=== PATIENT | female | born 1975 ===

== ENCOUNTER 2017-10-01 17:54 | Emergency (ER) | payer MEDICAID, OTHER ==
[2017-10-01 18:04] VITALS: RESP 18
--- NOTE | 2017-10-01 19:00 | C.PDOC ---
History Of Present Illness 42 yo female come in for evaluation of palpitation, intermittent headache developed for past few weeks. Patient reports, "Im going though a divorce now, lots of stress". Pt accompanied by her children, who was sent from school now for psych evaluation , expressed depression sign to school year nanny. Otherwise, pt denies fever, chills, denies worse headache of life, visual changes, focal deficits, N/V, neck pain, CP, SOB, dyspnea, diaphoreiss, abd. pain, back pain, denies suicidal or homocidal ideation, denies previous hx of depression. At the time of evaluation, pt appears comfortable, appropriate, not in any apparent distress. Time Seen by Provider: 10/01/17 18:21 Chief Complaint (Nursing): Palpitations History Per: Patient Past Medical History Reviewed: Historical Data, Nursing Documentation, Vital Signs Vital Signs: Last Vital Signs Temp 97.9 F 10/01/17 18:00 Pulse 99 H 10/01/17 18:00 Resp 18 10/01/17 18:00 BP 161/84 H 10/01/17 18:07 Pulse Ox 99 10/01/17 19:00 - Medical History PMH: No Chronic Diseases Surgical History: Cholecystectomy Family History: States: No Known Family Hx - Social History Hx Tobacco Use: No Hx Alcohol Use: No Hx Substance Use: No - Immunization History Hx Tetanus Toxoid Vaccination: No Review Of Systems Except As Marked, All Systems Reviewed And Found Negative. Constitutional: Negative for: Fever, Chills Eyes: Negative for: Vision Change ENT: Negative for: Throat Pain Cardiovascular: Positive for: Palpitations. Negative for: Chest Pain, Edema, Light Headedness Respiratory: Negative for: Cough, Shortness of Breath Gastrointestinal: Negative for: Nausea, Vomiting, Abdominal Pain, Diarrhea Genitourinary: Negative for: Dysuria Musculoskeletal: Negative for: Neck Pain, Back Pain Skin: Negative for: Rash Neurological: Negative for: Weakness, Numbness, Altered Mental Status, Headache , Dizziness Physical Exam - Physical Exam Appears: Well, Non-toxic, No Acute Distress Skin: Normal Color, Warm, Dry, No Rash Head: Normacephalic Eye(s): bilateral: PERRL Nose: No Flaring, No Discharge Oral Mucosa: Moist Throat: No Drooling Neck: Supple Cardiovascular: Rhythm Regular, No Murmur, No JVD Respiratory: No Decreased Breath Sounds, No Accessory Muscle Use, No Rales, No Rhonchi, No Stridor, No Wheezing Gastrointestinal/Abdominal: Soft, No Tenderness, No Distention, No Guarding Back: No CVA Tenderness Extremity: Normal ROM, No Deformity, No Swelling Neurological/Psych: Oriented x3, Normal Speech, Normal Motor, Normal Sensation, Normal Reflexes ED Course And Treatment ECG: Interpreted By Me, Viewed By Me ECG Rhythm: Sinus Rhythm Interpretation Of ECG: SR@87/min, NAD, no acute T wave or ST-T changes O2 Sat by Pulse Oximetry: 99 Pulse Ox Interpretation: Normal Progress Note: Pt was oferred PES evaluation, refused psych eval. at this time. On re-eval, pt is awake, alert, not in any apparent distress. Afebrile, hemodynamicaly stable. Appropriate. Non-toxic. Parent was advised. ref. to F/ u with PMD, Psych in 2-3 days for re-eval. return if any new changes. Disposition Counseled Patient/Family Regarding: Diagnosis, Need For Followup - Disposition Referrals: [facility] at [facility] [Outside] Disposition: HOME/ ROUTINE Disposition Time: 21:00 Condition: STABLE Additional Instructions: FOLLOW UP WITH PMD IN 2-3 DAYS FOR RE-EVALUATION AND FURTHER TREATMENT NEED RETURN TO ED IF ANY WORSENING OR NEW CHANGES. Instructions: Anxiety (ED), Palpitations (ED) Forms: [facility] (Belarusian) Print Language: UPPER SORBIAN - Clinical Impression Clinical Impression: Palpitations
[2017-10-01 21:09] VITALS: BP 122/80; PULSE 84; TEMP 97.6
[2017-10-01 21:16] VITALS: O2SAT 99
== END 2017-10-01 21:10 | disposition home or self-care (01) ==
LOC: C.ER 17:54
DX: R00.2 Palpitations (principal)

== ENCOUNTER 2017-12-18 14:27 | Emergency (ER) | payer OTHER ==
[2017-12-18 14:40] VITALS: RESP 18
[2017-12-18] MEDS ORDERED: Aluminum Hydroxide/Magnesium Hydroxide Susp (30 mL) PO STA (15:10)
[2017-12-18] MEDS ORDERED: Sodium Chloride 0.9% 1,000 ML IV ONE (15:10)
[2017-12-18] MEDS ORDERED: Aluminum Hydroxide/Magnesium Hydroxide Susp (30 mL) ONE (15:27)
[2017-12-18] MEDS ORDERED: Sodium Chloride 0.9% 1,000 ML ONE (15:27)
[2017-12-18 15:37] LABS: BASO % 0.1 % (0.0-2.0); EOS % 0.2 % (0.0-4.0); HEMOGLOBIN 13.1 g/dL (11.0-16.0); LYMPH # 1.4 K/uL (1.0-4.3); LYMPH % 9.7 % (20.0-40.0); MEAN CELL VOLUME 85.9 fL (81.0-99.0); MEAN CORPUSCULAR HGB CONC 33.8 g/dL (33.0-37.0); MEAN PLATELET VOLUME 8.8 fL (7.2-11.7); MONO # 0.6 K/uL (0.0-0.8); MONO % 4.6 % (0.0-10.0); NEUT # 11.9 K/uL (1.8-7.0); NEUT % 85.4 % (50.0-75.0); PLATELET COUNT 223 K/uL (130-400); RBC 4.51 Mil/uL (3.80-5.20); RED CELL DISTRIBUTION WIDTH 14.2 % (11.5-14.5)
[2017-12-18 15:49] LABS: ALBUMIN 4.2 g/dL (3.5-5.0); ALT/SGPT 16 U/L (9-52); AST/SGOT 31 U/L (14-36); BLOOD UREA NITROGEN 10 mg/dL (7-17); CALCIUM 9.1 mg/dl (8.6-10.4); GFR AFRICAN-AMERICAN > 60; GFR NON-AFRICAN AMERICAN > 60; LIPASE 72 U/L (23-300)
[2017-12-18 15:49] LABS: HCG,QUALITATIVE URINE NEGATIVE (NEGATIVE)
[2017-12-18 15:50] LABS: SQUAMOUS EPITHIAL 2 /hpf (0-5); URINE BILIRUBIN NEGATIVE (NEGATIVE); URINE BLOOD 2+ (NEGATIVE); URINE CLARITY Clear (Clear); URINE COLOR Straw (YELLOW); URINE GLUCOSE (UA) NORMAL (Normal); URINE LEUKOCYTE ESTERASE NEG Leu/uL (Negative); URINE PROTEIN NEGATIVE (NEGATIVE); URINE UROBILINOGEN NORMAL mg/dL (0.2-1.0)
--- NOTE | 2017-12-18 16:09 | US ---
HISTORY: abd pain COMPARISON: None. TECHNIQUE: Sonographic evaluation of the right upper quadrant of the abdomen. FINDINGS: LIVER: Measures 13.4 cm in length. Borderline increased echogenicity of the liver parenchyma. No mass. No intrahepatic bile duct dilatation. GALLBLADDER: The gallbladder is not identified in this patient who reports prior cholecystectomy some 10 years previously. COMMON BILE DUCT: Measures 2.9 mm. No stones. No dilatation. PANCREAS: Prominent bowel gas overlies the pancreas which is completely obscured. RIGHT KIDNEY: Measures 10.1 cm in length. Normal echogenicity. No calculus, mass, or hydronephrosis. AORTA: Limited visualization due to overlying bowel gas. Upper segment patent and unremarkable. IVC: Obscured by overlying bowel gas. OTHER FINDINGS: None . IMPRESSION: Apparent surgically absent gallbladder. Clinically correlate. Borderline diffuse fatty infiltration of liver. No evidence of biliary tree dilatation. Pancreas is obscured by overlying bowel gas as well as the majority of the abdominal aorta and inferior vena cava. No suspicious right renal findings.
--- NOTE | 2017-12-18 16:10 | C.PDOC ---
History Of Present Illness 42 year old female presents with no major medical problems presents to the emergency department with complaints of pain to her left flank persisting for the past two weeks with a 10/10 severity that lasted a short while and recently subsided. Patient also complains of pressure in her middle abdominal region, described as a pulling sensation, along with a protrusion when she sits for the past three months. In addition to that, she has been experiencing flu, chills, nausea, episodic vomiting and diarrhea, swelling throat, as well as a pulsating pain in her rectal area. Patient states her last episode of vomiting was last night, and her last diarrheal episode was an hour prior to arrival. Patient states she took Tylenol for her symptoms at 8am this morning. Patient denies shortness of breath, dysuria, and hematuria. Time Seen by Provider: 12/18/17 14:40 Chief Complaint (Nursing): Flu-like Symptoms History Per: Patient History/Exam Limitations: no limitations Onset/Duration Of Symptoms: Days (14) Current Symptoms Are (Timing): Still Present Location Of Pain: Headache Associated Symptoms: Fever, Chills, Sore Throat, Vomiting (episodic), Diarrhea ( episodic) Past Medical History Reviewed: Historical Data, Nursing Documentation, Vital Signs Vital Signs: Last Vital Signs Temp 98.8 F 12/18/17 17:44 Pulse 90 12/18/17 17:44 Resp 18 12/18/17 17:44 BP 119/82 12/18/17 17:44 Pulse Ox 98 12/18/17 17:44 - Medical History PMH: No Chronic Diseases Surgical History: Cholecystectomy Family History: States: No Known Family Hx - Social History Hx Tobacco Use: No Hx Alcohol Use: No Hx Substance Use: No - Immunization History Hx Tetanus Toxoid Vaccination: No Hx Influenza Vaccination: No Hx Pneumococcal Vaccination: No Review Of Systems Except As Marked, All Systems Reviewed And Found Negative. Constitutional: Positive for: Fever, Chills Respiratory: Negative for: Shortness of Breath Gastrointestinal: Positive for: Nausea, Vomiting, Abdominal Pain, Diarrhea, Rectal Pain Genitourinary: Negative for: Dysuria, Hematuria Musculoskeletal: Positive for: Back Pain. Negative for: Leg Pain Neurological: Positive for: Headache Physical Exam - Physical Exam Appears: In Acute Distress Throat: Normal Neck: Supple, Other (cervical adenopathy, present more towards the right side of the neck) Gastrointestinal/Abdominal: Soft, Tenderness (right upper quadrant. ) ED Course And Treatment - Laboratory Results Result Diagrams: 12/18/17 15:20 12/18/17 15:20 O2 Sat by Pulse Oximetry: 100 (RA) Pulse Ox Interpretation: Normal Medical Decision Making Medical Decision Making: Plan: CMP Lipase Maalox 30ml PO Pepcid 20mg IVP NaCl IV 1000ml Zofran 4mg IVP Urinalysis + HCG US Abdomen Limited Differential Diagnoses: Unimpressed by ventral hernia, more interested in possible gallbladder disease. Disposition Counseled Patient/Family Regarding: Studies Performed, Need For Followup, Rx Given - Disposition Referrals: [facility] [Outside] [facility] [Outside] Disposition: HOME/ ROUTINE Disposition Time: 17:56 Condition: STABLE Prescriptions: Docusate Sodium [Colace] 100 mg PO BID #20 capsule Hard Fat/Phenylephrine Stanton [Hemorrhoidal 88.7%-0.25%] 1 sup NH DAILY #10 sup Ibuprofen [Motrin] 600 mg PO TID #15 tab Forms: Gen Discharge Inst Ukrainian, [facility] (Ukrainian), Work Excuse - POA Present On Arrival: None - Clinical Impression Clinical Impression: Influenza-like illness, Rectal or anal pain - Scribe Statement The provider has reviewed the documentation as recorded by the Scribe (Honorio Tamez) Provider Attestation: All medical record entries made by the Scribe were at my direction and personally dictated by me. I have reviewed the chart and agree that the record accurately reflects my personal performance of the history, physical exam, medical decision making, and the department course for this patient. I have also personally directed, reviewed, and agree with the discharge instructions and disposition.
[2017-12-18 16:28] LABS: LYMPHOCYTE 13 % (20-40); MONOCYTE 2 % (0-10); NEUTROPHIL 85 % (50-75); PLATELET ESTIMATE NORMAL (NORMAL); TOTAL CELLS COUNTED 100
[2017-12-18 17:45] VITALS: BP 119/82; PULSE 90; TEMP 98.8
[2017-12-18 17:58] VITALS: O2SAT 100
== END 2017-12-18 18:41 | disposition home or self-care (01) ==
LOC: C.ER 14:27
DX: J11.1 Influenza due to unidentified influenza virus with other respiratory manifestations (principal); K62.89 Other specified diseases of anus and rectum
CPT/HCPCS: 76705; 80053; 81001; 83690; 84703; 85025; 96361; 96374; 96375; 99284; J2405; J7040

== ENCOUNTER 2018-10-05 16:43 | Inpatient (IN) | payer OTHER ==
[2018-10-05] MEDS ORDERED: Sodium Chloride 0.9% 1,000 ML IV ONE (16:59)
--- NOTE | 2018-10-05 17:07 | C.PDOC ---
History Of Present Illness Patient reports 5 day history of flu like symptoms associated with cough, congestion lower abdominal pain and diarrhea (+) fever, (+) nausea, (-) vomiting <EvelinBaylee A - Last Filed: 10/05/18 18:26> HPI: Influenza History Per: Patient Exam Limitations: no limitations Onset/Duration Of Symptoms: Days (5) Sick Contacts (Context): None <Baylee Waters - Last Filed: 10/05/18 18:26> <Gloria Guzmán - Last Filed: 10/05/18 22:33> Time Seen by Provider: 10/05/18 16:56 Chief Complaint: Flu-like Symptoms Past Medical History Reviewed: Historical Data, Nursing Documentation Vital Signs: Last Vital Signs Temp 100.2 F H 10/05/18 16:50 Pulse 125 H 10/05/18 16:50 Resp 18 10/05/18 16:50 BP 121/84 10/05/18 16:50 Pulse Ox 95 10/05/18 16:50 - Medical History PMH: No Chronic Diseases Surgical History: Cholecystectomy Family History: States: No Known Family Hx - Social History Hx Tobacco Use: No Hx Alcohol Use: No Hx Substance Use: No - Immunization History Hx Tetanus Toxoid Vaccination: No Hx Influenza Vaccination: No Hx Pneumococcal Vaccination: No <EvelinBaylee Anahi - Last Filed: 10/05/18 18:26> Vital Signs: Last Vital Signs Temp 100.2 F H 10/05/18 16:50 Pulse 125 H 10/05/18 16:50 Resp 18 10/05/18 16:50 BP 121/84 10/05/18 16:50 Pulse Ox 95 10/05/18 18:27 <Gloria Guzmán - Last Filed: 10/05/18 22:33> Review Of Systems Constitutional: Positive for: Fever, Chills, Weakness Respiratory: Positive for: Cough. Negative for: Shortness of Breath Gastrointestinal: Positive for: Nausea, Diarrhea Genitourinary: Positive for: Dysuria <Baylee Waters Last Filed: 10/05/18 18:26> Physical Exam - Physical Exam Appears: Well, Non-toxic Skin: Normal Color Eye(s): bilateral: Normal Inspection, PERRL Nose: Normal Oral Mucosa: Moist Tongue: Normal Appearing Neck: Normal Cardiovascular: Rhythm Regular, Rhythm Irregular Respiratory: Normal Breath Sounds Gastrointestinal/Abdominal: Tenderness (Lower abdomen) Back: No CVA Tenderness Extremity: Normal ROM Neurological/Psych: Oriented x3 Gait: Steady <Baylee Waters - Last Filed: 10/05/18 18:26> - Laboratory Results Result Diagrams: 10/05/18 17:52 10/05/18 17:52 - ECG O2 Sat by Pulse Oximetry: 95 - Radiology X-Ray: Interpreted by Ks X-Ray Interpretation: No Acute Disease - Progress ED Course And Treament: Treated with IVF NSS, Toradol, Bentyl and zofran On re-evaluation abdomen soft mild LLQ tenderness <EvelinBaylee A - Last Filed: 10/05/18 18:26> - Laboratory Results Result Diagrams: 10/05/18 17:52 10/05/18 17:52 Lab Results: Total Bilirubin 0.7 mg/dL (0.2-1.3) 10/05/18 17:52 AST 27 U/L (14-36) 10/05/18 17:52 ALT 30 U/L (9-52) 10/05/18 17:52 Alkaline Phosphatase 82 U/L (38-126) 10/05/18 17:52 Total Protein 7.3 g/dL (6.3-8.3) 10/05/18 17:52 Albumin 4.1 g/dL (3.5-5.0) 10/05/18 17:52 Globulin 3.2 gm/dL (2.2-3.9) 10/05/18 17:52 Albumin/Globulin Ratio 1.3 (1.0-2.1) 10/05/18 17:52 Lipase 76 U/L (23-300) 10/05/18 17:52 Urine Color Yellow (YELLOW) 10/05/18 17:52 Urine Clarity Hazy (Clear) 10/05/18 17:52 Urine pH 6.0 (5.0-8.0) 10/05/18 17:52 Ur Specific [place] 1.009 (1.003-1.030) 10/05/18 17:52 Urine Protein Negative mg/dL (NEGATIVE) 10/05/18 17:52 Urine Glucose (UA) Normal mg/dL (Normal) 10/05/18 17:52 Urine Ketones Trace mg/dL (NEGATIVE) 10/05/18 17:52 Urine Blood 2+ (NEGATIVE) H 10/05/18 17:52 Urine Nitrate Negative (NEGATIVE) 10/05/18 17:52 Urine Bilirubin Negative (NEGATIVE) 10/05/18 17:52 Urine Urobilinogen Normal mg/dL (0.2-1.0) 10/05/18 17:52 Ur Leukocyte Esterase 1+ Patti/uL (Negative) H 10/05/18 17:52 Urine WBC (Auto) 5 /hpf (0-5) 10/05/18 17:52 Urine RBC (Auto) 4 /hpf (0-3) H 10/05/18 17:52 Ur Squamous Epith Cells 12 /hpf (0-5) H 10/05/18 17:52 Calcium Oxalate Crystal Occ /hpf (<OCC) H 10/05/18 17:52 Urine Bacteria Occ (<OCC) H 10/05/18 17:52 Urine HCG, Qual Negative (NEGATIVE) 10/05/18 17:52 Urine HCG, Qual Negative (NEGATIVE) 10/05/18 17:52 Interpretation Of Abn Labs: WBC 14.8 with 16 bands - ECG Pulse Ox Interpretation: Normal - Progress ED Course And Treament: CT Abd/Pel EXAM: CT Abdomen and Pelvis with IV contrast CLINICAL HISTORY: RIK UMBILICAL PAIN. TECHNIQUE: Axial computed tomography images of the abdomen and pelvis with intravenous contrast. CONTRAST: With intravenous contrast. COMPARISON: None provided. FINDINGS: LUNG BASES: The lung bases appear clear. No pleural effusions are seen. LIVER: Unremarkable. GALLBLADDER AND BILE DUCTS: Status post cholecystectomy. No biliary ductal dilatation is evident. PANCREAS: Unremarkable. SPLEEN: Unremarkable. ADRENAL GLANDS: Unremarkable. KIDNEYS, URETERS, AND BLADDER: The kidneys appear within normal limits. There is no hydronephrosis or hydroure ter. No urinary calculi are seen. STOMACH AND BOWEL: Unremarkable appearance of the stomach. No evidence of bowel obstruction. There is mucosal wall thickening throughout the large intestine extending into the rectum compatible with colitis/proctitis. infectious or inflammatory etiologies are thought most likely. The findings are most pronounced within the ascending and transverse segments. Additionally, there is mucosal wall thickening of the terminal ileum suspicious for regional enteritis. The possibility of Crohn's disease should be considered. APPENDIX: No evidence of acute appendicitis on CT examination. PERITONEUM: No free fluid. No free air. ABDOMINAL WALL: At the level of the umbilicus, a midline ventral herniorrhaphy mesh is present. LYMPH NODES: No lymphadenopathy is evident. REPRODUCTIVE: A 2.1 x 1.7 cm left ovarian cyst is noted. 3.5 x 2.5 cm submucosal fundal mass is seen may represent a submucosal fibroid. Nabothian cysts are seen on the internal and external cervical os. VASCULATURE: No evidence of abdominal aortic aneurysm. BONES: No aggressive appearing osseous lesion. No acute osseous pathology evident. IMPRESSION: 1. Evidence of colitis/proctitis and regional enteritis. These findings could likely have an inflammatory bowel disease or infectious etiology. 2. A midline ventral herniorrhaphy mesh is identified at the level of the umbilicus. 3. Status post cholecystectomy. 4. 3.5 x 2.5 cm submucosal fundal mass is seen may represent a submucosal fibroid. Nabothian cysts are seen on the internal and external cervical os. 2.1 x 1.7 cm left ovarian cyst is identified. Consideration could be given to correlation with TV pelvic ultrasound for further characterization. - Physician Consult Information Time Consulting Physican Contacted: 22:31 Physician Contacted: Jonathan Navarro Jr. Outcome Of Conversation: Patient to be admitted for regional enteritis with colitis, R/O Crohn's disease <Gloria Guzmán - Last Filed: 10/05/18 22:33> Disposition Counseled Patient/Family Regarding: Studies Performed, Diagnosis, Need For Followup - Disposition Disposition Time: 19:00 - POA Present On Arrival: None <Baylee Waters Last Filed: 10/05/18 18:26> - Disposition Disposition Time: 22:32 - POA Present On Arrival: None <Gloria Guzmán - Last Filed: 10/05/18 22:33> - Disposition Disposition: HOSPITALIZED Condition: STABLE - Clinical Impression Clinical Impression: Abdominal pain, Enteritis, Colitis Physician Patient Turnover Patient Signed Over To: Gloria Guzmán Handoff Comments: pending CT abdomen <Baylee Waters Last Filed: 10/05/18 18:26>
[2018-10-05] MEDS ORDERED: Sodium Chloride 0.9% 1,000 ML ONE (17:44)
--- NOTE | 2018-10-05 17:46 | RAD ---
HISTORY: Cough COMPARISON: None available. TECHNIQUE: Chest PA and lateral FINDINGS: LUNGS: No focal consolidation. Please note that chest x-ray has limited sensitivity for the detection of pulmonary masses. PLEURA: No significant pleural effusion identified. No definite pneumothorax . CARDIOVASCULAR: Heart size appears within normal limits. No atherosclerotic calcification present. OSSEOUS STRUCTURES: Mild degenerative changes. VISUALIZED UPPER ABDOMEN: Unremarkable. OTHER FINDINGS: None. IMPRESSION: No focal consolidation.
[2018-10-05 18:02] LABS: BASO % 0.2 % (0.0-2.0); HEMOGLOBIN 13.3 g/dL (11.0-16.0); LYMPH # 1.1 K/uL (1.0-4.3); LYMPH % 7.7 % (20.0-40.0); MEAN CELL VOLUME 89.2 fL (81.0-99.0); MEAN CORPUSCULAR HEMOGLOBIN 29.5 pg (27.0-31.0); MEAN CORPUSCULAR HGB CONC 33.1 g/dL (33.0-37.0); MEAN PLATELET VOLUME 8.5 fL (7.2-11.7); MONO # 0.5 K/uL (0.0-0.8); NEUT # 13.2 K/uL (1.8-7.0); NEUT % 89.1 % (50.0-75.0); NRBC % 0.1 % (0.0-2.0); PLATELET COUNT 245 K/uL (130-400); RBC 4.52 Mil/uL (3.80-5.20); RED CELL DISTRIBUTION WIDTH 12.7 % (11.5-14.5); WHITE BLOOD COUNT 14.8 K/uL (4.8-10.8)
[2018-10-05 18:04] LABS: HCG,QUALITATIVE URINE NEGATIVE (NEGATIVE)
[2018-10-05 18:07] LABS: SQUAMOUS EPITHIAL 12 /hpf (0-5); URINE BACTERIA OCC (<OCC); URINE BILIRUBIN NEGATIVE (NEGATIVE); URINE BLOOD 2+ (NEGATIVE); URINE CALCIUM OXALATE CRYSTALS OCC /hpf (<OCC); URINE CLARITY Hazy (Clear); URINE COLOR Yellow (YELLOW); URINE GLUCOSE (UA) NORMAL (Normal); URINE LEUKOCYTE ESTERASE 1+ Leu/uL (Negative); URINE PROTEIN NEGATIVE (NEGATIVE); URINE UROBILINOGEN NORMAL mg/dL (0.2-1.0)
[2018-10-05 18:08] LABS: ALB/GLOB RATIO 1.3 (1.0-2.1); ALBUMIN 4.1 g/dL (3.5-5.0); ALT/SGPT 30 U/L (9-52); AST/SGOT 27 U/L (14-36); BLOOD UREA NITROGEN 10 mg/dL (7-17); CALCIUM 8.6 mg/dl (8.6-10.4); GFR NON-AFRICAN AMERICAN > 60; LIPASE 76 U/L (23-300)
[2018-10-05] MEDS ORDERED: Iohexol 240 (50 ml) PO STA (18:16)
[2018-10-05] MEDS ORDERED: Iohexol 240 (50 ml) ONE (18:34)
[2018-10-05] MEDS ORDERED: Iohexol 350mg/ml 100 ML ONE (18:45)
[2018-10-05 18:51] LABS: BANDS 16 % (0-2); LYMPHOCYTE 8 % (20-40); MONOCYTE 3 % (0-10); NEUTROPHIL 73 % (50-75); PLATELET ESTIMATE NORMAL (NORMAL); TOTAL CELLS COUNTED 100
--- NOTE | 2018-10-05 23:45 | CP.PCM.HP ---
History of Present Illness - History of Present Illness History of Present Illness: PGY1 H&P for Dr. Navarro's service CC: abdominal pain and diarrhea This is a 43 year old female with PMH of stress incontinence, obesity, headaches who presents with a 1 day history of abdominal pain, associated with vomiting and diarrhea. Pt describes the abdominal pain as diffuse, cramping, non radiating, associated with 4 episodes of yellow colored liquid stool, 2 episodes of yellow colored vomiting. She also endorses a tactile fever, diffuse muscle cramps, and diffuse headache. Pt reports that she took Ibuprofen x1 pill (unknown mg) yesterday, which helped with the headache, and this is what she usually does when she has a headache. She denies chills, chest pain, palpitations, shortness of breath, cough, dizziness, lightheadedness, visual changes, numbness or tingling, recent travel, recent illness, recent antibiotics use, history of similar symptoms in the past, hematochezia, melena, dysuria, increased urinary frequency, hematuria. PMD: not sure of name and hasn't seen a physician in over 8 months PMH: stress incontinence, obesity, headaches PSH: lap cholecystectomy greater than 10 years ago, ventral hernia repair with mesh greater than 5 years ago, abdominoplasty 2 years ago Meds: Ibuprofen as needed Allx: NKDA FHx: denies. Denies family history of inflammatory bowel disease, or similar symptoms. Denies family history of cancers. SHx: denies smoking history, denies drug use. Occasional EtOH use Present on Admission - Present on Admission Any Indicators Present on Admission: No Past Patient History - Infectious Disease Hx of Infectious Diseases: None - Past Social History Smoking Status: Never Smoked - PSYCHIATRIC Hx Substance Use: No - SURGICAL HISTORY Hx Cholecystectomy: Yes - ANESTHESIA Hx Anesthesia: Yes Hx Anesthesia Reactions: No Hx Malignant Hyperthermia: No Meds Allergies/Adverse Reactions: Allergies Allergy/AdvReac Type Severity Reaction Status Date / Time No Known Allergies Allergy Verified 12/18/17 14:40 Physical Exam - Constitutional Appears: Non-toxic, No Acute Distress - Head Exam Head Exam: ATRAUMATIC, NORMAL INSPECTION - Eye Exam Eye Exam: EOMI, Normal appearance - ENT Exam ENT Exam: Mucous Membranes Moist - Respiratory Exam Respiratory Exam: Clear to Auscultation Bilateral, NORMAL BREATHING PATTERN. absent: Decreased Breath Sounds, Rales, Rhonchi, Wheezes - Cardiovascular Exam Cardiovascular Exam: REGULAR RHYTHM, +S1, +S2. absent: Tachycardia - GI/Abdominal Exam GI & Abdominal Exam: Soft, Tenderness (diffuse tendernes, suprapubic tenderness). absent: Distended, Firm, Normal Bowel Sounds (hyperactive bowel sounds), Rebound, Rigid Additional comments: (+) horizontal, well healed abdominoplasty scar (+) laproscopic scars, well healed. - Extremities Exam Extremities exam: Positive for: normal capillary refill, normal inspection, pedal pulses present. Negative for: calf tenderness - Back Exam Back exam: NORMAL INSPECTION, paraspinal tenderness (bilateral entire spinal hypertonicity with mild tenderness). absent: CVA tenderness (L), CVA tenderness (R) - Neurological Exam Neurological exam: Alert, Oriented x3 - Psychiatric Exam Psychiatric exam: Normal Affect, Normal Mood - Skin Skin Exam: Dry, Normal Color, Warm Additional comments: normal skin turgor Results - Vital Signs Recent Vital Signs: Last Vital Signs Temp 100.2 F H 10/05/18 16:50 Pulse 125 H 10/05/18 16:50 Resp 18 10/05/18 16:50 BP 121/84 10/05/18 16:50 Pulse Ox 95 10/05/18 18:27 - Labs Result Diagrams: 10/05/18 17:52 10/05/18 17:52 Labs: Laboratory Results - last 24 hr 10/05/18 10/05/18 10/05/18 17:52 17:52 17:52 WBC 14.8 H RBC 4.52 Hgb 13.3 Hct 40.3 MCV 89.2 D MCH 29.5 MCHC 33.1 RDW 12.7 Plt Count 245 MPV 8.5 Neut % (Auto) 89.1 H Lymph % (Auto) 7.7 L Real % (Auto) 3.0 Eos % (Auto) 0.0 Baso % (Auto) 0.2 Neut # (Auto) 13.2 H Lymph # (Auto) 1.1 Real # (Auto) 0.5 Eos # (Auto) 0.0 Baso # (Auto) 0.0 Neutrophils % (Manual) 73 Band Neutrophils % 16 H* Lymphocytes % (Manual) 8 L Monocytes % (Manual) 3 Platelet Estimate Normal Sodium Potassium Chloride Carbon Dioxide Anion Gap BUN Creatinine Est GFR ( Amer) Est GFR (Non-Af Amer) Random Glucose Calcium Total Bilirubin AST ALT Alkaline Phosphatase Total Protein Albumin Globulin Albumin/Globulin Ratio Lipase Urine Color Yellow Urine Clarity Hazy Urine pH 6.0 Ur Specific [place] 1.009 Urine Protein Negative Urine Glucose (UA) Normal Urine Ketones Trace Urine Blood 2+ H Urine Nitrate Negative Urine Bilirubin Negative Urine Urobilinogen Normal Ur Leukocyte Esterase 1+ H Urine WBC (Auto) 5 Urine RBC (Auto) 4 H Ur Squamous Epith Cells 12 H Calcium Oxalate Crystal Occ H Urine Bacteria Occ H Urine HCG, Qual Negative Influenza Typ A,B (EIA) Negative for flu a/b 10/05/18 17:52 WBC RBC Hgb Hct MCV MCH MCHC RDW Plt Count MPV Neut % (Auto) Lymph % (Auto) Real % (Auto) Eos % (Auto) Baso % (Auto) Neut # (Auto) Lymph # (Auto) Real # (Auto) Eos # (Auto) Baso # (Auto) Neutrophils % (Manual) Band Neutrophils % Lymphocytes % (Manual) Monocytes % (Manual) Platelet Estimate Sodium 134 Potassium 3.6 Chloride 103 Carbon Dioxide 22 Anion Gap 12 BUN 10 Creatinine 0.9 Est GFR ( Amer) > 60 Est GFR (Non-Af Amer) > 60 Random Glucose 113 H D Calcium 8.6 Total Bilirubin 0.7 AST 27 ALT 30 Alkaline Phosphatase 82 Total Protein 7.3 Albumin 4.1 Globulin 3.2 Albumin/Globulin Ratio 1.3 Lipase 76 Urine Color Urine Clarity Urine pH Ur Specific [place] Urine Protein Urine Glucose (UA) Urine Ketones Urine Blood Urine Nitrate Urine Bilirubin Urine Urobilinogen Ur Leukocyte Esterase Urine WBC (Auto) Urine RBC (Auto) Ur Squamous Epith Cells Calcium Oxalate Crystal Urine Bacteria Urine HCG, Qual Influenza Typ A,B (EIA) Assessment & Plan - Assessment and Plan (Free Text) Assessment: This is a 43 year old female with PMH of stress incontinence, obesity, headaches who presents with a 1 day history of abdominal pain, associated with vomiting and diarrhea. Abdominal CT shows colitis/proctatis and regional enteritis. Plan: Colitis, first time Code sepsis was called in the ED Low grade fever Abdominal/pelvic CT with PO/IV contrast shows evidence of colitis/proctitis and regional enteritis. Midline ventral hernia herniorrhaphy mesh at level of umbilicus. S/p cholecystectomy. 3.5 x 2.5 cm submucosal fundal mass, may represent submucosal fibroid. Nabothian cysts on the internal and external cervical os. 2.1 x 1.7 cm left ovarian cyst. CXR shows no free air, no infiltrate. WBC is 14.8 with bandemia of 16 Lipase is WNL NPO NS IVF at 100 mL/hr Ciprofloxacin 400 mg IVPB q12h, Flagyl 500 mg IPVPB q8h Gastroenterology, Dr. Rodríguez, consulted. Recommendations appreciated F/u blood cultures x2 F/u Lactate Abnormal urinalysis UCG is negative Pt is not complaining of any urinary symptoms UA shows 2+ blood, 1 leukocyte esterase, 12 squamous cells F/u clean catch urinalysis, clean catch urine culture GI ppx: Protonix 40 mg IVP VTE ppx: SCDs, pt is ambulatory NPO Case was discussed with attending physician, Dr. Melanie Carreon PGY1
[2018-10-06] MEDS: Sodium Chloride 0.9% 1,000 ML IV SCH ×3 (00:15→20:26)
[2018-10-06] MEDS ORDERED: metroNIDAZOLE IV 500 mg/100 ml 500 MG/100 ML BAG ONE ×2 (00:18→07:35)
[2018-10-06] MEDS: metroNIDAZOLE IV 500 mg/100 ml 500 MG/100 ML BAG IVPB SCH ×4 (00:41→22:52)
[2018-10-06 00:47] LABS: VENOUS BLOOD GAS BASE EXCESS -5.4 mmol/L (0.0-2.0); VENOUS BLOOD GAS PCO2 38 mmHg (40-60); VENOUS BLOOD GAS PO2 33 mm/Hg (30-55); VENOUS BLOOD PH 7.33 (7.32-7.43)
[2018-10-06] MEDS: Ciprofloxacin 400mg/200ml D5W 400 MG/200 ML BAG IVPB SCH ×2 (02:20→11:24)
[2018-10-06] MEDS ORDERED: Ciprofloxacin 400mg/200ml D5W 400 MG/200 ML BAG IVPB ONE (02:26)
[2018-10-06 04:42] LABS: BASO % 0.1 % (0.0-2.0); HEMOGLOBIN 13.4 g/dL (11.0-16.0); LYMPH # 0.7 K/uL (1.0-4.3); LYMPH % 5.4 % (20.0-40.0); MEAN CELL VOLUME 89.4 fL (81.0-99.0); MEAN CORPUSCULAR HEMOGLOBIN 30.2 pg (27.0-31.0); MEAN CORPUSCULAR HGB CONC 33.8 g/dL (33.0-37.0); MEAN PLATELET VOLUME 8.2 fL (7.2-11.7); MONO # 0.2 K/uL (0.0-0.8); MONO % 1.3 % (0.0-10.0); NEUT # 12.7 K/uL (1.8-7.0); NEUT % 93.2 % (50.0-75.0); PLATELET COUNT 230 K/uL (130-400); RBC 4.42 Mil/uL (3.80-5.20); RED CELL DISTRIBUTION WIDTH 12.9 % (11.5-14.5); WHITE BLOOD COUNT 13.7 K/uL (4.8-10.8)
[2018-10-06 05:01] LABS: SQUAMOUS EPITHIAL 1 /hpf (0-5); URINE BACTERIA RARE (<OCC); URINE BILIRUBIN NEGATIVE (NEGATIVE); URINE CLARITY Clear (Clear); URINE COLOR Yellow (YELLOW); URINE GLUCOSE (UA) NORMAL (Normal); URINE LEUKOCYTE ESTERASE NEG Leu/uL (Negative); URINE PROTEIN NEGATIVE (NEGATIVE); URINE UROBILINOGEN NORMAL mg/dL (0.2-1.0)
[2018-10-06 05:05] LABS: URINE BLOOD NEGATIVE (NEGATIVE)
[2018-10-06 05:09] LABS: ALB/GLOB RATIO 1.3 (1.0-2.1); ALBUMIN 4.2 g/dL (3.5-5.0); ALT/SGPT 42 U/L (9-52); AST/SGOT 28 U/L (14-36); BLOOD UREA NITROGEN 11 mg/dL (7-17); CALCIUM 8.7 mg/dl (8.6-10.4); GFR NON-AFRICAN AMERICAN > 60
[2018-10-06 05:34] LABS: BANDS 8 % (0-2); LYMPHOCYTE 2 % (20-40); MONOCYTE 5 % (0-10); NEUTROPHIL 85 % (50-75); TOTAL CELLS COUNTED 100
[2018-10-06 05:35] LABS: PLATELET ESTIMATE NORMAL (NORMAL)
--- NOTE | 2018-10-06 07:40 | CP.PCM.PN ---
Subjective - Date & Time of Evaluation Date of Evaluation: 10/06/18 Time of Evaluation: 08:30 - Subjective Subjective: Patient examined at bedside. No acute overnight events. Pt reports continued watery loose stools, approximately 4 since admission; much decreased from prior. Pt reports improved abdominal pain. Pt has had decreased appetite since Wednesday and has not eaten much and is eager to resume diet. Denies chest pain, SOB, nausea. Objective - Vital Signs/Intake and Output Vital Signs (last 24 hours): Temp Pulse Resp BP Pulse Ox 97.9 F 81 18 99/64 L 100 10/06/18 07:20 10/06/18 07:20 10/06/18 07:20 10/06/18 07:20 10/06/18 07:20 Intake and Output: 10/06/18 10/06/18 06:59 18:59 Output Total 850 Balance -850 - Medications Medications: Current Medications Acetaminophen (Tylenol 325mg Tab) 650 mg PO PRN PRN PRN Reason: Fever >100.4 F Ciprofloxacin (Cipro 400mg/200ml Dsw) 400 mg in 200 mls @ 133 mls/hr IVPB Q12H [facility]ANN; Protocol Last Admin: 10/06/18 02:20 Dose: 133 mls/hr Metronidazole (Flagyl) 500 mg in 100 mls @ 100 mls/hr IVPB Q8H [facility]ANN; Protocol Last Admin: 10/06/18 07:35 Dose: 100 mls/hr Sodium Chloride (Sodium Chloride 0.9%) 1,000 mls @ 100 mls/hr IV .Q10H [facility]ANN Last Admin: 10/06/18 00:15 Dose: 100 mls/hr Methylprednisolone (Solu-Medrol) 40 mg IV Q12 RUTHANN Stop: 10/07/18 22:01 Pantoprazole Sodium (Protonix Inj) 40 mg IVP DAILY R[facility]ANN - Labs Labs: 10/06/18 04:38 10/06/18 04:38 - Constitutional Appears: Non-toxic, No Acute Distress - Head Exam Head Exam: ATRAUMATIC, NORMAL INSPECTION, NORMOCEPHALIC - Eye Exam Eye Exam: EOMI, Normal appearance Pupil Exam: NORMAL ACCOMODATION - ENT Exam ENT Exam: Mucous Membranes Moist, Normal Exam - Neck Exam Neck Exam: Normal Inspection - Respiratory Exam Respiratory Exam: Clear to Ausculation Bilateral, NORMAL BREATHING PATTERN - Cardiovascular Exam Cardiovascular Exam: REGULAR RHYTHM, +S1, +S2. absent: Tachycardia - GI/Abdominal Exam GI & Abdominal Exam: Soft, Tenderness (suprapubic), Normal Bowel Sounds. absent: Distended Additional comments: Abdominal incisions from abdominoplasty, well healed - Extremities Exam Extremities Exam: Normal Inspection. absent: Calf Tenderness, Pedal Edema - Back Exam Back Exam: NORMAL INSPECTION - Neurological Exam Neurological Exam: Alert, Awake, Oriented x3 - Psychiatric Exam Psychiatric exam: Normal Affect, Normal Mood - Skin Skin Exam: Dry, Intact, Normal Color, Warm Assessment and Plan - Assessment and Plan (Free Text) Assessment: 43 year old female admitted for treatment of pancolitis Plan: Pancolitis -CT abd/pelvis: diffuse thickening of colon suggestive of pancolitis -IV Abx, Cipro, Flagyl -Solumedrol 40mg q12 -IVF, NS @100 -f/u cultures -Tylenol prn, pain, fever -for colonoscopy tomorrow -bowel prep/NPO after MN -GI consult, Dr. Rodríguez Discussed w/ Dr. Navarro -Samaria Torres, PGY-1
--- NOTE | 2018-10-06 09:44 | CP.PCM.CON ---
History of Present Illness - History of Present Illness History of Present Illness: GI Consult Note for Dr. Rodríguez Past Patient History - Infectious Disease Hx of Infectious Diseases: None - Past Social History Smoking Status: Never Smoked - PSYCHIATRIC Hx Substance Use: No - SURGICAL HISTORY Hx Cholecystectomy: Yes - ANESTHESIA Hx Anesthesia: Yes Hx Anesthesia Reactions: No Hx Malignant Hyperthermia: No Meds Allergies/Adverse Reactions: Allergies Allergy/AdvReac Type Severity Reaction Status Date / Time No Known Allergies Allergy Verified 12/18/17 14:40 - Medications Medications: Current Medications Acetaminophen (Tylenol 325mg Tab) 650 mg PO PRN PRN PRN Reason: Fever >100.4 F Ciprofloxacin (Cipro 400mg/200ml Dsw) 400 mg in 200 mls @ 133 mls/hr IVPB Q12H R[facility]ANN; Protocol Last Admin: 10/06/18 02:20 Dose: 133 mls/hr Metronidazole (Flagyl) 500 mg in 100 mls @ 100 mls/hr IVPB Q8H R[facility]ANN; Protocol Last Admin: 10/06/18 07:35 Dose: 100 mls/hr Sodium Chloride (Sodium Chloride 0.9%) 1,000 mls @ 100 mls/hr IV .Q10H R[facility]ANN Last Admin: 10/06/18 00:15 Dose: 100 mls/hr Methylprednisolone (Solu-Medrol) 40 mg IV Q12 RUTHANN Stop: 10/07/18 22:01 Pantoprazole Sodium (Protonix Inj) 40 mg IVP DAILY [facility] Results - Vital Signs Recent Vital Signs: Last Vital Signs Temp 97.3 F L 10/06/18 08:44 Pulse 77 10/06/18 08:44 Resp 20 10/06/18 08:44 BP 103/72 10/06/18 08:44 Pulse Ox 98 10/06/18 08:44 - Labs Result Diagrams: 10/06/18 04:38 10/06/18 04:38 Labs: Laboratory Results - last 24 hr 10/05/18 10/05/18 10/05/18 17:52 17:52 17:52 WBC 14.8 H RBC 4.52 Hgb 13.3 Hct 40.3 MCV 89.2 D MCH 29.5 MCHC 33.1 RDW 12.7 Plt Count 245 MPV 8.5 Neut % (Auto) 89.1 H Lymph % (Auto) 7.7 L [place] % (Auto) 3.0 Eos % (Auto) 0.0 Baso % (Auto) 0.2 Neut # (Auto) 13.2 H Lymph # (Auto) 1.1 [place] # (Auto) 0.5 Eos # (Auto) 0.0 Baso # (Auto) 0.0 Neutrophils % (Manual) 73 Band Neutrophils % 16 H* Lymphocytes % (Manual) 8 L Monocytes % (Manual) 3 Platelet Estimate Normal pO2 VBG pH VBG pCO2 VBG HCO3 VBG Total CO2 VBG O2 Sat (Calc) VBG Base Excess VBG Potassium Glucose Lactate Sodium Potassium Chloride Carbon Dioxide Anion Gap BUN Creatinine Est GFR ( Amer) Est GFR (Non-Af Amer) Random Glucose Calcium Phosphorus Magnesium Total Bilirubin AST ALT Alkaline Phosphatase Total Protein Albumin Globulin Albumin/Globulin Ratio Lipase Venous Blood Potassium Urine Color Yellow Urine Clarity Hazy Urine pH 6.0 Ur Specific Epes 1.009 Urine Protein Negative Urine Glucose (UA) Normal Urine Ketones Trace Urine Blood 2+ H Urine Nitrate Negative Urine Bilirubin Negative Urine Urobilinogen Normal Ur Leukocyte Esterase 1+ H Urine WBC (Auto) 5 Urine RBC (Auto) 4 H Ur Squamous Epith Cells 12 H Calcium Oxalate Crystal Occ H Urine Bacteria Occ H Urine HCG, Qual Negative Influenza Typ A,B (EIA) Negative for flu a/b 10/05/18 10/06/18 10/06/18 17:52 00:40 04:38 WBC 13.7 H RBC 4.42 Hgb 13.4 Hct 39.5 MCV 89.4 MCH 30.2 MCHC 33.8 RDW 12.9 Plt Count 230 MPV 8.2 Neut % (Auto) 93.2 H Lymph % (Auto) 5.4 L [place] % (Auto) 1.3 Eos % (Auto) 0.0 Baso % (Auto) 0.1 Neut # (Auto) 12.7 H Lymph # (Auto) 0.7 L [place] # (Auto) 0.2 Eos # (Auto) 0.0 Baso # (Auto) 0.0 Neutrophils % (Manual) 85 H Band Neutrophils % 8 H Lymphocytes % (Manual) 2 L Monocytes % (Manual) 5 Platelet Estimate Normal pO2 33 VBG pH 7.33 VBG pCO2 38 L VBG HCO3 19.7 VBG Total CO2 21.2 L VBG O2 Sat (Calc) 64.2 VBG Base Excess -5.4 L VBG Potassium 2.6 L Glucose 71 Lactate 0.7 Sodium 134 143.0 Potassium 3.6 Chloride 103 113.0 H Carbon Dioxide 22 Anion Gap 12 BUN 10 Creatinine 0.9 Est GFR ( Amer) > 60 Est GFR (Non-Af Amer) > 60 Random Glucose 113 H D Calcium 8.6 Phosphorus Magnesium Total Bilirubin 0.7 AST 27 ALT 30 Alkaline Phosphatase 82 Total Protein 7.3 Albumin 4.1 Globulin 3.2 Albumin/Globulin Ratio 1.3 Lipase 76 Venous Blood Potassium 2.6 L Urine Color Urine Clarity Urine pH Ur Specific Epes Urine Protein Urine Glucose (UA) Urine Ketones Urine Blood Urine Nitrate Urine Bilirubin Urine Urobilinogen Ur Leukocyte Esterase Urine WBC (Auto) Urine RBC (Auto) Ur Squamous Epith Cells Calcium Oxalate Crystal Urine Bacteria Urine HCG, Qual Influenza Typ A,B (EIA) 10/06/18 10/06/18 04:38 04:38 WBC RBC Hgb Hct MCV MCH MCHC RDW Plt Count MPV Neut % (Auto) Lymph % (Auto) [place] % (Auto) Eos % (Auto) Baso % (Auto) Neut # (Auto) Lymph # (Auto) [place] # (Auto) Eos # (Auto) Baso # (Auto) Neutrophils % (Manual) Band Neutrophils % Lymphocytes % (Manual) Monocytes % (Manual) Platelet Estimate pO2 VBG pH VBG pCO2 VBG HCO3 VBG Total CO2 VBG O2 Sat (Calc) VBG Base Excess VBG Potassium Glucose Lactate Sodium 136 Potassium 4.0 Chloride 107 Carbon Dioxide 22 Anion Gap 11 BUN 11 Creatinine 0.9 Est GFR ( Amer) > 60 Est GFR (Non-Af Amer) > 60 Random Glucose 122 H Calcium 8.7 Phosphorus 2.1 L Magnesium 2.2 Total Bilirubin 0.6 AST 28 ALT 42 Alkaline Phosphatase 98 Total Protein 7.6 Albumin 4.2 Globulin 3.3 Albumin/Globulin Ratio 1.3 Lipase Venous Blood Potassium Urine Color Yellow Urine Clarity Clear Urine pH 6.0 Ur Specific Epes 1.021 Urine Protein Negative Urine Glucose (UA) Normal Urine Ketones 1+ H Urine Blood Negative Urine Nitrate Negative Urine Bilirubin Negative Urine Urobilinogen Normal Ur Leukocyte Esterase Neg Urine WBC (Auto) 1 Urine RBC (Auto) 1 Ur Squamous Epith Cells 1 Calcium Oxalate Crystal Urine Bacteria Rare Urine HCG, Qual Influenza Typ A,B (EIA)
--- NOTE | 2018-10-06 09:53 | CT ---
CT abdomen and pelvis HISTORY: Abdominal pain. COMPARISON: None available. TECHNIQUE: Multiple contiguous axial images were performed through the abdomen and pelvis with the use of intravenous contrast. Subsequently, sagittal and coronal reformatted images were obtained. This CT exam was performed using one or more of the following dose reduction techniques: Automated exposure control, adjustment of the mA and/or kV according to patient size, and/or use of iterative reconstruction technique. Findings: Atelectasis at the lung bases. 4-5 millimeter pulmonary nodule at the lateral aspect of the left lower lobe on series 3, image 30. No pleural or pericardial effusion. Fatty infiltration of the liver. Prior cholecystectomy. Postsurgical prominence of the common bile duct. Spleen is preserved. Adrenal glands are preserved. Pancreas is preserved. Upper abdominal bowel is preserved. Right kidney: No calculi or hydronephrosis. Left Kidney: No calculi or hydronephrosis. Urinary bladder is preserved. Heterogeneous uterus. Prominent nabothian cysts noted at the level of the cervix. Thickened heterogeneous endometrium. Question submucosal lesion and or possible fibroid lesion within the uterus. 2.5 centimeter left adnexal cyst. Correlation with pelvic ultrasound may be helpful if clinically indicated. Diffuse thickening of the colon suggestive for a pancolitis. This is most pronounced in the ascending and transverse colon. Few shotty mesenteric lymph nodes seen within right sweetie abdomen. Appendix is contrast filled and within limits. Few shotty para-aortic and inguinal lymph nodes. Postsurgical changes at the level of the anterior abdominal wall. Degenerative changes in the spine. Sclerosis bilateral SI joints. Impression: 1. Diffuse thickening of the colon suggestive for a pancolitis. This may be related to acute infectious and or inflammatory changes. Clinical correlation. 2. Heterogeneous uterus. Prominent nabothian cysts noted at the level of the cervix. Thickened heterogeneous endometrium. Question submucosal lesion and or possible fibroid lesion within the uterus. 2.5 centimeter left adnexal cyst. Correlation with pelvic ultrasound may be helpful if clinically indicated. Additional findings as above. A preliminary report was generated at 10:08 p.m. on 10/05/[address] Jeffrey Harris from [employer].
--- NOTE | 2018-10-06 11:27 | CP.PCM.PCO ---
Physician Communication Note - Physician Communication Note Physician Communication Note: see above
[2018-10-06] MEDS ORDERED: Peg-Electrolyte Oral Soln 4L (Golytely) PO ONE (14:03)
[2018-10-07] MEDS: Ciprofloxacin 400mg/200ml D5W 400 MG/200 ML BAG IVPB SCH ×2 (00:45→12:28)
[2018-10-07] MEDS: metroNIDAZOLE IV 500 mg/100 ml 500 MG/100 ML BAG IVPB SCH ×3 (06:52→23:21)
--- NOTE | 2018-10-07 06:55 | CP.PCM.PN ---
Subjective - Date & Time of Evaluation Date of Evaluation: 10/07/18 Time of Evaluation: 06:50 - Subjective Subjective: Patient examined at bedside. Discussion had with pt regarding plan for colonoscopy today. Pt reports she drank the prep as instructed yesterday, has had multiple bowel movements, and experienced some cramping/pain overnight. Pt reports abdominal discomfort is much improved this morning; denies chest pain, SOB, nausea. Objective - Vital Signs/Intake and Output Vital Signs (last 24 hours): Temp Pulse Resp BP Pulse Ox 98.0 F 87 20 100/61 97 10/07/18 00:00 10/07/18 00:00 10/07/18 00:00 10/07/18 00:00 10/07/18 00:00 - Medications Medications: Current Medications Acetaminophen (Tylenol 325mg Tab) 650 mg PO Q4H PRN PRN Reason: Other Last Admin: 10/06/18 18:05 Dose: 650 mg Ciprofloxacin (Cipro 400mg/200ml Dsw) 400 mg in 200 mls @ 133 mls/hr IVPB Q12H RUTHANN; Protocol Last Admin: 10/07/18 00:45 Dose: 133 mls/hr Metronidazole (Flagyl) 500 mg in 100 mls @ 100 mls/hr IVPB Q8H RUTHANN; Protocol Last Admin: 10/07/18 06:52 Dose: 100 mls/hr Sodium Chloride (Sodium Chloride 0.9%) 1,000 mls @ 100 mls/hr IV .Q10H RUTHANN Last Admin: 10/06/18 20:26 Dose: 100 mls/hr Influenza Virus Vaccine (Flucelvax Quad [id number] Syr) 60 mcg IM .ONCE ONE Stop: 10/08/18 10:01 Methylprednisolone (Solu-Medrol) 40 mg IV Q12 RUTHANN Stop: 10/07/18 22:01 Last Admin: 10/06/18 22:26 Dose: 40 mg Pantoprazole Sodium (Protonix Inj) 40 mg IVP DAILY [facility]ANN Last Admin: 10/06/18 11:22 Dose: 40 mg - Labs Labs: 10/06/18 04:38 10/06/18 04:38 - Constitutional Appears: Non-toxic, No Acute Distress - Head Exam Head Exam: ATRAUMATIC, NORMAL INSPECTION, NORMOCEPHALIC - Eye Exam Eye Exam: EOMI, Normal appearance - ENT Exam ENT Exam: Mucous Membranes Moist, Normal Exam - Neck Exam Neck Exam: Normal Inspection - Respiratory Exam Respiratory Exam: Clear to Ausculation Bilateral, NORMAL BREATHING PATTERN - Cardiovascular Exam Cardiovascular Exam: REGULAR RHYTHM, +S1, +S2. absent: Tachycardia - GI/Abdominal Exam GI & Abdominal Exam: Soft, Tenderness (right lower quadrant), Normal Bowel Sounds. absent: Distended - Back Exam Back Exam: NORMAL INSPECTION - Neurological Exam Neurological Exam: Alert, Awake, Oriented x3 - Psychiatric Exam Psychiatric exam: Normal Affect, Normal Mood - Skin Skin Exam: Dry, Intact, Normal Color, Warm Assessment and Plan - Assessment and Plan (Free Text) Assessment: 43 year old female admitted for treatment of pancolitis Plan: Pancolitis -CT abd/pelvis: diffuse thickening of colon suggestive of pancolitis -IV Abx, Cipro, Flagyl -Solumedrol 40mg q12 -IVF, NS @100 -cultures negative -CA 125 WNL -Tylenol prn, pain, fever -Colonoscopy(10/07): Full report in EMR Non bleeding medium sized internal and external hemorrhoids A few small and large-mouthed diverticula in sigmoid and descending colon; no diverticular bleed Area of moderately congested mucosa found in descending colon. Bx taken 5mm sessile polyp in mid descending colon; resected Recommendations of high fiber diet, repeat colonoscopy in 3 yrs pending pathology, Analpram HC cream 2.5% externally applied BID x 8 wks -GI consult, Dr. Rodríguez -per GI recs, resume medications on floor and start high fiber diet -f/u pathology results Discussed w/ Dr. Melanie Torres, PGY-1
[2018-10-07 08:36] LABS: BASO % 0.1 % (0.0-2.0); HEMOGLOBIN 11.6 g/dL (11.0-16.0); LYMPH # 1.6 K/uL (1.0-4.3); LYMPH % 8.4 % (20.0-40.0); MEAN CELL VOLUME 90.6 fL (81.0-99.0); MEAN CORPUSCULAR HEMOGLOBIN 30.1 pg (27.0-31.0); MEAN CORPUSCULAR HGB CONC 33.2 g/dL (33.0-37.0); MEAN PLATELET VOLUME 8.7 fL (7.2-11.7); MONO # 0.8 K/uL (0.0-0.8); NEUT # 16.6 K/uL (1.8-7.0); NEUT % 87.5 % (50.0-75.0); PLATELET COUNT 258 K/uL (130-400); RBC 3.86 Mil/uL (3.80-5.20); RED CELL DISTRIBUTION WIDTH 12.4 % (11.5-14.5)
[2018-10-07 08:38] LABS: INR 1.2; PROTHROMBIN TIME 13.6 SECONDS (9.7-12.2)
[2018-10-07 08:45] LABS: ALB/GLOB RATIO 1.2 (1.0-2.1); ALBUMIN 3.3 g/dL (3.5-5.0); ALT/SGPT 34 U/L (9-52); AST/SGOT 18 U/L (14-36); BLOOD UREA NITROGEN 11 mg/dL (7-17); CALCIUM 8.1 mg/dl (8.6-10.4); GFR NON-AFRICAN AMERICAN > 60
[2018-10-07 10:11] LABS: BANDS 2 % (0-2); HYPOCHROMIC SLIGHT; LYMPHOCYTE 8 % (20-40); MONOCYTE 2 % (0-10); NEUTROPHIL 88 % (50-75); PLATELET ESTIMATE NORMAL (NORMAL); TOTAL CELLS COUNTED 100
[2018-10-07 10:12] LABS: LARGE PLATELETS PRESENT
[2018-10-07] MEDS ORDERED: Propofol 10 mg/ml Inj (20 ML) ONE ×2 (10:18→10:29)
[2018-10-07] MEDS ORDERED: Lidocaine Hydrochloride 5 ML INJ ONE (10:18)
[2018-10-07] MEDS ORDERED: Lidocaine Hydrochloride 10 ML INJ ONE (10:46)
--- NOTE | 2018-10-07 13:09 | CP.PCM.CON ---
History of Present Illness - History of Present Illness History of Present Illness: GI Consult Note for Dr. Rodríguez Note: This is a delayed entry. Dr. Rodríguez to dictate upon admission, however, no consult note in to this date. He requests that I write consult note today. CC: abdominal pain, vomiting, diarrhea 43 y/o female with PMHx of stress urinary incontinence presented to the ED with abdominal pain, vomiting, and diarrhea x 1 day. She was seen in the ED night of 10/05 and admitted to the hospital. Per documentation, code sepsis was called then. She had Tmax of 100.2F and leukocytosis 14.8 with bandemia. Abdominal pain was diffuse, dull, cramping and did not radiate. Patient stated that she had yellow colored loose stool x 4 and 2 episodes of vomiting. The stool did not have blood. She took one tablet of ibuprofen because she had a headache, which helped. But abdominal pain persisted. Leading up to the admission, patient does not recall eating old/ food or anything out of her ordinary diet. She denies chills, diaphroesis, chest pain, palpitations, SOB, cough, dizziness/lightheadedness, recent illness, sick contacts, recent use of abx. Patient has been urinating normally and unremarkably. Of note, such sx have never happened to her before. Patient has not had a colonoscopy before. PMHx: as stated above PSHx: lap boogie, ventral hernia repair, abdominoplasty FHx: Denies family history of chronic GI diseases. Denies family history of cancers. SHx: Denies tobacco and illicit drugs. Uses EtOH occasionally. Meds: none Allergies: NKDA Past Patient History - Infectious Disease Hx of Infectious Diseases: None - Past Medical History & Family History Past Medical History?: No - Past Social History Smoking Status: Never Smoked - MUSCULOSKELETAL/RHEUMATOLOGICAL Hx Falls: No - PSYCHIATRIC Hx Substance Use: No - SURGICAL HISTORY Hx Surgeries: Yes Hx Cholecystectomy: Yes - ANESTHESIA Hx Anesthesia: Yes Hx Anesthesia Reactions: No Hx Malignant Hyperthermia: No Meds Allergies/Adverse Reactions: Allergies Allergy/AdvReac Type Severity Reaction Status Date / Time No Known Allergies Allergy Verified 12/18/17 14:40 - Medications Medications: Current Medications Acetaminophen (Tylenol 325mg Tab) 650 mg PO Q4H PRN PRN Reason: Other Last Admin: 10/06/18 18:05 Dose: 650 mg Ciprofloxacin (Cipro 400mg/200ml Dsw) 400 mg in 200 mls @ 133 mls/hr IVPB Q12H RUTHANN; Protocol Last Admin: 10/07/18 12:28 Dose: 133 mls/hr Metronidazole (Flagyl) 500 mg in 100 mls @ 100 mls/hr IVPB Q8H RUTHANN; Protocol Last Admin: 10/07/18 06:52 Dose: 100 mls/hr Sodium Chloride (Sodium Chloride 0.9%) 1,000 mls @ 100 mls/hr IV .Q10H [facility] Last Admin: 10/06/18 20:26 Dose: 100 mls/hr Influenza Virus Vaccine (Flucelvax Quad [id number] Syr) 60 mcg IM .ONCE ONE Stop: 10/08/18 10:01 Methylprednisolone (Solu-Medrol) 40 mg IV Q12 RUTHANN Stop: 10/07/18 22:01 Last Admin: 10/06/18 22:26 Dose: 40 mg Pantoprazole Sodium (Protonix Inj) 40 mg IVP DAILY [facility] Last Admin: 10/07/18 12:28 Dose: 40 mg Physical Exam - Constitutional Appears: Well - Head Exam Head Exam: ATRAUMATIC, NORMAL INSPECTION - Eye Exam Eye Exam: Normal appearance - Neck Exam Neck exam: Positive for: Normal Inspection - Respiratory Exam Respiratory Exam: Clear to Auscultation Bilateral, NORMAL BREATHING PATTERN - Cardiovascular Exam Cardiovascular Exam: REGULAR RHYTHM - GI/Abdominal Exam GI & Abdominal Exam: Soft, Tenderness (diffuse and suprapubic, mild ttp on admission and persists after colonoscopy) - Neurological Exam Neurological exam: Alert - Psychiatric Exam Psychiatric exam: Normal Affect, Normal Mood - Skin Skin Exam: Dry, Intact, Normal Color, Warm Results - Vital Signs Recent Vital Signs: Last Vital Signs Temp 98.0 F 10/07/18 10:40 Pulse 65 10/07/18 11:10 Resp 14 10/07/18 11:10 BP 105/67 10/07/18 11:10 Pulse Ox 100 10/07/18 11:10 - Labs Result Diagrams: 10/07/18 08:23 10/07/18 08:23 Labs: Laboratory Results - last 24 hr 10/07/18 10/07/18 10/07/18 08:23 08:23 08:23 WBC 19.0 H RBC 3.86 Hgb 11.6 Hct 35.0 MCV 90.6 MCH 30.1 MCHC 33.2 RDW 12.4 Plt Count 258 MPV 8.7 Neut % (Auto) 87.5 H Lymph % (Auto) 8.4 L [place] % (Auto) 4.0 Eos % (Auto) 0.0 Baso % (Auto) 0.1 Neut # (Auto) 16.6 H Lymph # (Auto) 1.6 [place] # (Auto) 0.8 Eos # (Auto) 0.0 Baso # (Auto) 0.0 Neutrophils % (Manual) 88 H Band Neutrophils % 2 Lymphocytes % (Manual) 8 L Monocytes % (Manual) 2 Platelet Estimate Normal Large Platelets Present Hypochromasia (manual) Slight PT 13.6 H INR 1.2 APTT 27 Sodium 141 Potassium 4.0 Chloride 112 H Carbon Dioxide 25 Anion Gap 9 L BUN 11 Creatinine 0.8 Est GFR ( Amer) > 60 Est GFR (Non-Af Amer) > 60 Random Glucose 112 H Calcium 8.1 L Phosphorus 2.8 Magnesium 2.1 Total Bilirubin 0.3 AST 18 ALT 34 Alkaline Phosphatase 74 Total Protein 6.0 L Albumin 3.3 L D Globulin 2.8 Albumin/Globulin Ratio 1.2 CA 125 Antigen Urine HCG, Qual 10/07/18 10/07/18 09:30 12:01 WBC RBC Hgb Hct MCV MCH MCHC RDW Plt Count MPV Neut % (Auto) Lymph % (Auto) [place] % (Auto) Eos % (Auto) Baso % (Auto) Neut # (Auto) Lymph # (Auto) [place] # (Auto) Eos # (Auto) Baso # (Auto) Neutrophils % (Manual) Band Neutrophils % Lymphocytes % (Manual) Monocytes % (Manual) Platelet Estimate Large Platelets Hypochromasia (manual) PT INR APTT Sodium Potassium Chloride Carbon Dioxide Anion Gap BUN Creatinine Est GFR ( Amer) Est GFR (Non-Af Amer) Random Glucose Calcium Phosphorus Magnesium Total Bilirubin AST ALT Alkaline Phosphatase Total Protein Albumin Globulin Albumin/Globulin Ratio CA 125 Antigen 20.3 Urine HCG, Qual Negative Assessment & Plan - Assessment and Plan (Free Text) Assessment: 43 y/o female presented to the ED on 10/05 and admitted for abdominal pain, vomiting, and diarrhea, s/p code sepsis on admission. colitis -CTAP: diffuse thickening of colon suggestive of pancolitis -solumedrol 40 mg q12 -c/w flagyl IV, started 10/05 -recommend d/c cipro IV -urine and blood cultures negative to date -colonoscopy by Dr. Rodríguez (see full report in EMR 10/07): internal and external hemorrhoids present and non bleeding, non bleeding diverticula in sigmoid and descending colon, bx taken. 5 mm sessile polyp in mid descending colon. -recommend high fiber diet -pending official pathology report of bx, likely repeat colonoscopy recommended in 3 years. Patient made aware. case d/w Dr. Marcos Jeffries PGY1
[2018-10-07] MEDS: Sodium Chloride 0.9% 1,000 ML IV SCH (15:56)
[2018-10-07 16:20] VITALS: RESP 20
[2018-10-08] MEDS: Ciprofloxacin 400mg/200ml D5W 400 MG/200 ML BAG IVPB SCH ×2 (00:28→12:02)
[2018-10-08] MEDS: Sodium Chloride 0.9% 1,000 ML IV SCH (02:03)
[2018-10-08 07:20] LABS: BASO % 0.1 % (0.0-2.0); HEMOGLOBIN 11.7 g/dL (11.0-16.0); LYMPH # 1.4 K/uL (1.0-4.3); LYMPH % 14.5 % (20.0-40.0); MEAN CELL VOLUME 89.4 fL (81.0-99.0); MEAN CORPUSCULAR HEMOGLOBIN 30.6 pg (27.0-31.0); MEAN CORPUSCULAR HGB CONC 34.2 g/dL (33.0-37.0); MEAN PLATELET VOLUME 8.6 fL (7.2-11.7); MONO # 0.3 K/uL (0.0-0.8); MONO % 2.8 % (0.0-10.0); NEUT # 8.1 K/uL (1.8-7.0); NEUT % 82.6 % (50.0-75.0); NRBC % 0.1 % (0.0-2.0); RBC 3.82 Mil/uL (3.80-5.20); RED CELL DISTRIBUTION WIDTH 13.1 % (11.5-14.5); WHITE BLOOD COUNT 9.8 K/uL (4.8-10.8)
[2018-10-08 07:26] LABS: ALB/GLOB RATIO 1.2 (1.0-2.1); ALBUMIN 3.4 g/dL (3.5-5.0); ALT/SGPT 33 U/L (9-52); AST/SGOT 17 U/L (14-36); BLOOD UREA NITROGEN 12 mg/dL (7-17); CALCIUM 8.1 mg/dl (8.6-10.4); GFR NON-AFRICAN AMERICAN > 60
[2018-10-08] MEDS: metroNIDAZOLE IV 500 mg/100 ml 500 MG/100 ML BAG IVPB SCH (07:53)
[2018-10-08] MEDS ORDERED: Influenza Vaccine 60 mcg/0.5 mL SYR (4YR UP) IM ONE (10:00)
--- NOTE | 2018-10-08 11:07 | PN ---
DATE: 10/08/2018 LOCATION: 562, bed A. SUBJECTIVE: This is a 43-year-old female post colonoscopy with biopsy yesterday, seen and examined early in rounds, complaining of mild abdominal pain, less than before. No reported active bleeding, but mild nausea with dyspepsia. The entire chart is reviewed including today's lab results with normal CBC. Blood glucose level 118, calcium 8.1, albumin 3.4 with reported normal CA-125. PHYSICAL EXAMINATION: GENERAL: A 43-year-old female, awake, alert and oriented. Denied any chest pain, palpitation, but nausea with dyspepsia, no reported shortness of breath. No chills or fever. VITAL SIGNS: The patient is afebrile with pulse of 74, respiratory rate 20-22, blood pressure 102/66. HEENT: Showed pale dry oral mucous membrane. Nonicteric sclerae. LUNGS: Few scattered crepitation. Decreased air entry at bases. HEART: Positive S1 and S2. ABDOMEN: Soft with mild generalized tenderness. No mass or organomegaly. No rebound tenderness or guarding. EXTREMITIES: Without significant clubbing, cyanosis or edema. No reported new neurological deficits, sensory or motor. IMPRESSION: 1. Diverticulosis with evidence of mild diverticulitis. 2. Colitis, mainly on the left side, biopsy is still pending. 3. Known bleeding internal hemorrhoids. 4. Small sessile polyp, removed by colonoscopy. 5. Status post cholecystectomy by history. SUGGESTIONS: 1. Agree with your plan. 2. Reglan IV with proton pump inhibitors. 3. Advance diet gradually. 4. Further recommendation to follow. Viktor Hanks MD
[2018-10-08 11:17] VITALS: BP 118/80; PULSE 73; TEMP 97.2; O2SAT 99
--- NOTE | 2018-10-08 11:25 | CP.PCM.DIS ---
Provider - Provider Date of Admission: 10/05/18 23:09 Attending physician: Jonathan Navarro Jr, MD Consults: 10/05/18 23:38 Gastroenterology Consult Routine Comment: Consulting Provider: Viktor Rodríguez Consulting Physician: Viktor Rodríguez Reason for Consult: colitis Time Spent in preparation of Discharge (in minutes): 30 Diagnosis - Discharge Diagnosis (1) Colitis Status: Acute Hospital Course - Lab Results Lab Results: Micro Results 10/05/18 Unknown Blood-Venous Blood Culture - Preliminary NO GROWTH AFTER 48 HOURS 10/05/18 Unknown Blood-Venous Blood Culture - Preliminary NO GROWTH AFTER 48 HOURS 10/06/18 00:23 Urine Random Urine Culture - Final No Growth (<1,000 CFU/ML) Most Recent Lab Values WBC 9.8 K/uL (4.8-10.8) 10/08/18 07:03 RBC 3.82 Mil/uL (3.80-5.20) 10/08/18 07:03 Hgb 11.7 g/dL (11.0-16.0) 10/08/18 07:03 Hct 34.2 % (34.0-47.0) 10/08/18 07:03 MCV 89.4 fL (81.0-99.0) 10/08/18 07:03 MCH 30.6 pg (27.0-31.0) 10/08/18 07:03 MCHC 34.2 g/dL (33.0-37.0) 10/08/18 07:03 RDW 13.1 % (11.5-14.5) 10/08/18 07:03 Plt Count 245 K/uL (130-400) 10/08/18 07:03 MPV 8.6 fL (7.2-11.7) 10/08/18 07:03 Neut % (Auto) 82.6 % (50.0-75.0) H 10/08/18 07:03 Lymph % (Auto) 14.5 % (20.0-40.0) L 10/08/18 07:03 [place] % (Auto) 2.8 % (0.0-10.0) 10/08/18 07:03 Eos % (Auto) 0.0 % (0.0-4.0) 10/08/18 07:03 Baso % (Auto) 0.1 % (0.0-2.0) 10/08/18 07:03 Neut # (Auto) 8.1 K/uL (1.8-7.0) H 10/08/18 07:03 Lymph # (Auto) 1.4 K/uL (1.0-4.3) 10/08/18 07:03 [place] # (Auto) 0.3 K/uL (0.0-0.8) 10/08/18 07:03 Eos # (Auto) 0.0 K/uL (0.0-0.7) 10/08/18 07:03 Baso # (Auto) 0.0 K/uL (0.0-0.2) 10/08/18 07:03 Neutrophils % (Manual) 88 % (50-75) H 10/07/18 08:23 Band Neutrophils % 2 % (0-2) 10/07/18 08:23 Lymphocytes % (Manual) 8 % (20-40) L 10/07/18 08:23 Monocytes % (Manual) 2 % (0-10) 10/07/18 08:23 Platelet Estimate Normal (NORMAL) 10/07/18 08:23 Large Platelets Present 10/07/18 08:23 Hypochromasia (manual) Slight 10/07/18 08:23 PT 13.6 SECONDS (9.7-12.2) H 10/07/18 08:23 INR 1.2 10/07/18 08:23 APTT 27 SECONDS (21-34) 10/07/18 08:23 pO2 33 mm/Hg (30-55) 10/06/18 00:40 VBG pH 7.33 (7.32-7.43) 10/06/18 00:40 VBG pCO2 38 mmHg (40-60) L 10/06/18 00:40 VBG HCO3 19.7 mmol/L 10/06/18 00:40 VBG Total CO2 21.2 mmol/L (22-28) L 10/06/18 00:40 VBG O2 Sat (Calc) 64.2 % (40-65) 10/06/18 00:40 VBG Base Excess -5.4 mmol/L (0.0-2.0) L 10/06/18 00:40 VBG Potassium 2.6 mmol/L (3.6-5.2) L 10/06/18 00:40 Sodium 143.0 mmol/l (132-148) 10/06/18 00:40 Chloride 113.0 mmol/L (98-107) H 10/06/18 00:40 Glucose 71 mg/dl (65-105) 10/06/18 00:40 Lactate 0.7 mmol/L (0.7-2.1) 10/06/18 00:40 Sodium 138 mmol/L (132-148) 10/08/18 07:03 Potassium 4.0 mmol/L (3.6-5.2) 10/08/18 07:03 Chloride 109 mmol/L (98-107) H 10/08/18 07:03 Carbon Dioxide 24 mmol/L (22-30) 10/08/18 07:03 Anion Gap 9 (10-20) L 10/08/18 07:03 BUN 12 mg/dL (7-17) 10/08/18 07:03 Creatinine 0.8 mg/dL (0.7-1.2) 10/08/18 07:03 Est GFR ( Amer) > 60 10/08/18 07:03 Est GFR (Non-Af Amer) > 60 10/08/18 07:03 Random Glucose 118 mg/dL (65-105) H 10/08/18 07:03 Calcium 8.1 mg/dl (8.6-10.4) L 10/08/18 07:03 Phosphorus 2.9 mg/dL (2.5-4.5) 10/08/18 07:03 Magnesium 2.0 mg/dL (1.6-2.3) 10/08/18 07:03 Total Bilirubin 0.2 mg/dL (0.2-1.3) 10/08/18 07:03 AST 17 U/L (14-36) 10/08/18 07:03 ALT 33 U/L (9-52) 10/08/18 07:03 Alkaline Phosphatase 76 U/L (38-126) 10/08/18 07:03 Total Protein 6.3 g/dL (6.3-8.3) 10/08/18 07:03 Albumin 3.4 g/dL (3.5-5.0) L 10/08/18 07:03 Globulin 2.8 gm/dL (2.2-3.9) 10/08/18 07:03 Albumin/Globulin Ratio 1.2 (1.0-2.1) 10/08/18 07:03 Lipase 76 U/L (23-300) 10/05/18 17:52 CA 125 Antigen 20.3 U/mL (0-35) 10/07/18 12:01 Venous Blood Potassium 2.6 mmol/L (3.6-5.2) L 10/06/18 00:40 Urine Color Yellow (YELLOW) 10/06/18 04:38 Urine Clarity Clear (Clear) 10/06/18 04:38 Urine pH 6.0 (5.0-8.0) 10/06/18 04:38 Ur Specific [place] 1.021 (1.003-1.030) 10/06/18 04:38 Urine Protein Negative mg/dL (NEGATIVE) 10/06/18 04:38 Urine Glucose (UA) Normal mg/dL (Normal) 10/06/18 04:38 Urine Ketones 1+ mg/dL (NEGATIVE) H 10/06/18 04:38 Urine Blood Negative (NEGATIVE) 10/06/18 04:38 Urine Nitrate Negative (NEGATIVE) 10/06/18 04:38 Urine Bilirubin Negative (NEGATIVE) 10/06/18 04:38 Urine Urobilinogen Normal mg/dL (0.2-1.0) 10/06/18 04:38 Ur Leukocyte Esterase Neg Patti/uL (Negative) 10/06/18 04:38 Urine WBC (Auto) 1 /hpf (0-5) 10/06/18 04:38 Urine RBC (Auto) 1 /hpf (0-3) 10/06/18 04:38 Ur Squamous Epith Cells 1 /hpf (0-5) 10/06/18 04:38 Calcium Oxalate Crystal Occ /hpf (<OCC) H 10/05/18 17:52 Urine Bacteria Rare (<OCC) 10/06/18 04:38 Urine HCG, Qual Negative (NEGATIVE) 10/07/18 09:30 Influenza Typ A,B (EIA) Negative for flu a/b (NEGATIVE) 10/05/18 17:52 - Hospital Course Hospital Course: Patient's complaints of abdominal pain/cramping with diarrhea/nausea/vomiting were evaluated in ED. Patient was found to be febrile at 100.2, and tachycardic at 125. Labs revealed leukocytosis of 14.8 and bands of 16. UA showed possible UTI and CXR revealed no active disease, and Abdominal/pelic CT showed findings consistent with pancolitis, GI consult was placed for , and patient was started on IV Abx, Cipro and Flagyl. Pt started on solu-medrol 40mg IV Q12. Patient received Colonoscopy(10/07) revealing: Full report in EMR Non bleeding medium sized internal and external hemorrhoids A few small and large-mouthed diverticula in sigmoid and descending colon; no diverticular bleed Area of moderately congested mucosa found in descending colon. Bx taken 5mm sessile polyp in mid descending colon; resected Recommendations of high fiber diet, repeat colonoscopy in 3 yrs pending pathology, Analpram HC cream 2.5% externally applied BID x 8 wks Patient's symptoms improved during stay. Patient tolerating diet with improvement in BMs. HPI on admission: "This is a 43 year old female with PMH of stress incontinence, obesity, headaches who presents with a 1 day history of abdominal pain, associated with vomiting and diarrhea. Pt describes the abdominal pain as diffuse, cramping, non radiating, associated with 4 episodes of yellow colored liquid stool, 2 episodes of yellow colored vomiting. She also endorses a tactile fever, diffuse muscle cramps, and diffuse headache. Pt reports that she took Ibuprofen x1 pill (unknown mg) yesterday, which helped with the headache, and this is what she usually does when she has a headache. She denies chills, chest pain, palpitations, shortness of breath, cough, dizziness, lightheadedness, visual changes, numbness or tingling, recent travel, recent illness, recent antibiotics use, history of similar symptoms in the past, hematochezia, melena, dysuria, increased urinary frequency, hematuria." Discharge Exam - Head Exam Head Exam: ATRAUMATIC, NORMAL INSPECTION - Eye Exam Eye Exam: EOMI, Normal appearance - ENT Exam ENT Exam: Mucous Membranes Moist - Neck Exam Neck exam: Normal Inspection - Respiratory Exam Respiratory Exam: Clear to PA & Lateral, NORMAL BREATHING PATTERN, UNREMARKABLE - Cardiovascular Exam Cardiovascular Exam: REGULAR RHYTHM, +S1, +S2. absent: Tachycardia - GI/Abdominal Exam GI & Abdominal Exam: Normal Bowel Sounds, Unremarkable. absent: Tenderness - Extremities Exam Extremities exam: normal inspection - Neurological Exam Neurological exam: Alert, Oriented x3 - Psychiatric Exam Psychiatric exam: Normal Affect, Normal Mood - Skin Skin Exam: Dry, Intact, Normal Color, Warm Discharge Plan - Discharge Medications Prescriptions: Ciprofloxacin HCl [Cipro] 500 mg PO Q12H #14 tablet Methylprednisolone [Medrol Dose Pack (21 tabs)] 4 mg PO DAILY #21 mg Metronidazole [Flagyl] 500 mg PO Q8H #21 tablet - Follow Up Plan Condition: STABLE Disposition: HOME/ ROUTINE Instructions: Colitis (DC) Additional Instructions: Patient is stable for discharge home. Patient was admitted for the treatment of pancolitis, and is now stable to continue treatment at home. Patient instructed to follow up with Dr. Navarro, or PMD within 1 week of discharge. Patient instructed to follow up with Dr. Rodríguez within 1 week of discharge Patient will be given prescriptions for antibiotics and steroids to continue taking at home Medrol dose pack, to be taken as directed on package Flagyl 500mg PO Q8, for 7 days; take 1 tab by mouth every 8 hours for 7 days Cipro 500mg PO Q12, for 7 days; take 1 tab by mouth every 12 hours for 7 days Patient instructed to follow up with PMD or return to the nearest emergency room with any worsening of symptoms Referrals: Viktor Rodríguez [Staff Provider] - Jonathan Navarro Jr., MD [Medical Doctor] -
[2018-10-08] MEDS ORDERED: MethylPREDNISolone 40 mg Vial IVP ONE (11:45)
== END 2018-10-08 14:45 | disposition home or self-care (01) | DRG 189 ==
LOC: C.ER 16:43 → C.9E 23:09 → C.5S 10-06 07:05 → C.9E 10-06 07:31 → C.5S 10-06 07:43
PROVIDERS: ADMIT Internal Medicine; ATTEND Internal Medicine
PROC: 0DBM8ZX Excision of Descending Colon, Via Natural or Artificial Opening Endoscopic, Diagnostic (ICD-10-PCS; principal; 2018-10-07 10:22)
DX: D12.4 Benign neoplasm of descending colon (principal); K64.4 Residual hemorrhoidal skin tags; K57.30 Diverticulosis of large intestine without perforation or abscess without bleeding

== ENCOUNTER 2018-10-13 11:59 | Emergency (ER) | payer OTHER ==
[2018-10-13 12:16] VITALS: BP 114/76; RESP 20
[2018-10-13] MEDS ORDERED: Sodium Chloride 0.9% 1,000 ML IV STA (13:19)
[2018-10-13 13:46] LABS: BASO % 0.3 % (0.0-2.0); EOS # 0.1 K/uL (0.0-0.7); EOS % 0.6 % (0.0-4.0); LYMPH % 39.5 % (20.0-40.0); MEAN CELL VOLUME 91.2 fL (81.0-99.0); MEAN CORPUSCULAR HEMOGLOBIN 29.9 pg (27.0-31.0); MEAN CORPUSCULAR HGB CONC 32.8 g/dL (33.0-37.0); MEAN PLATELET VOLUME 8.6 fL (7.2-11.7); MONO # 0.8 K/uL (0.0-0.8); MONO % 7.9 % (0.0-10.0); NEUT # 5.2 K/uL (1.8-7.0); NEUT % 51.7 % (50.0-75.0); NRBC % 0.1 % (0.0-2.0); RBC 5.1 Mil/uL (3.80-5.20); RED CELL DISTRIBUTION WIDTH 13.6 % (11.5-14.5); WHITE BLOOD COUNT 10.2 K/uL (4.8-10.8)
--- NOTE | 2018-10-13 13:54 | C.PDOC ---
History Of Present Illness 43 year old female presents to the ED for evaluation of abdominal pain. Patient was admitted in this hospital from 10/05/18 to 10/08/18 and was discharged and cleared to return to work on 10/12/18. Patient returns to the ED stating her ab dominal pain has persisted. She states her pain is neither better nor worse, but the same as when she was discharged. Patient also reports having up to 3 episodes of (non-bloody) diarrhea per day and some nausea. She denies fever, chills, vomiting. Time Seen by Provider: 10/13/18 13:02 Chief Complaint (Nursing): GI Problem History Per: Patient History/Exam Limitations: no limitations Onset/Duration Of Symptoms: Days Current Symptoms Are (Timing): Still Present Location Of Pain/Discomfort: Diffuse Quality Of Discomfort: "Pain" Associated Symptoms: Nausea, Diarrhea. denies: Fever, Chills, Vomiting Additional History Per: Patient Abnormal Vaginal Bleeding: No Past Medical History Reviewed: Historical Data, Nursing Documentation, Vital Signs Vital Signs: Last Vital Signs Temp 98.3 F 10/13/18 12:09 Pulse 78 10/13/18 12:09 Resp 20 10/13/18 12:09 BP 114/76 10/13/18 12:09 Pulse Ox 97 10/13/18 12:09 - Medical History PMH: No Chronic Diseases Surgical History: Cholecystectomy - [facility] Procedures EXCISION OF DESCENDING COLON, ENDO, DIAGN (10/05/18) Family History: States: Unknown Family Hx - Social History Hx Tobacco Use: No Hx Alcohol Use: No Hx Substance Use: No - Immunization History Hx Tetanus Toxoid Vaccination: No Hx Influenza Vaccination: Yes (08/2018) Hx Pneumococcal Vaccination: No Review Of Systems Constitutional: Negative for: Fever, Chills Gastrointestinal: Positive for: Nausea, Abdominal Pain. Negative for: Vomiting, Diarrhea Physical Exam - Physical Exam Additional Physical Exam Comments: Constitutional: No acute distress. Head: Normocephalic. Atraumatic. Eyes: PERRL. ENT: Moist mucous membranes. Neck: Supple. Cardiovascular: Regular rate. Radial pulse 2+ bilaterally. Chest: No tenderness. Respiratory: Clear to auscultation bilaterally. GI: Soft. Nontender. Nondistended. Back: No CVA tenderness. Musculoskeletal: No tenderness or swelling of extremities. Skin: No rash. Neurologic: Alert, no focal deficit. ED Course And Treatment - Laboratory Results Result Diagrams: 10/13/18 13:38 10/13/18 13:38 O2 Sat by Pulse Oximetry: 97 (on RA) Pulse Ox Interpretation: Normal Medical Decision Making Medical Decision Making: Progress: Bloodwork ordered and reviewed. Zofran IVP and IV Fluids given. Labs unremarkable. Patient in no distress. Discharged home, f/u PMD, return to ED for worsening pain, vomiting, fever, or any other problem. Disposition - Disposition Referrals: [facility] [Outside] Disposition: HOME/ ROUTINE Disposition Time: 14:14 Condition: STABLE Prescriptions: Ondansetron ODT [Zofran ODT] 4 mg PO Q8 #12 odt Instructions: Colitis Forms: [facility] (Macedonian), Work Excuse - Clinical Impression Clinical Impression: Colitis - Scribe Statement The provider has reviewed the documentation as recorded by the Scribe (Heather Thapa) Provider Attestation: All medical record entries made by the Scribe were at my direction and personally dictated by me. I have reviewed the chart and agree that the record accurately reflects my personal performance of the history, physical exam, medical decision making, and the department course for this patient. I have also personally directed, reviewed, and agree with the discharge instructions and disposition.
[2018-10-13 13:57] LABS: HEMOGLOBIN 15.3 g/dL (11.0-16.0)
[2018-10-13 14:11] LABS: ALB/GLOB RATIO 1.3 (1.0-2.1); ALBUMIN 4.8 g/dL (3.5-5.0); ALT/SGPT 88 U/L (9-52); AST/SGOT 73 U/L (14-36); BLOOD UREA NITROGEN 18 mg/dL (7-17); CALCIUM 9.3 mg/dl (8.6-10.4); GFR NON-AFRICAN AMERICAN > 60; LIPASE 276 U/L (23-300)
[2018-10-13 14:49] VITALS: PULSE 74; TEMP 97.5; O2SAT 100
== END 2018-10-13 14:57 | disposition home or self-care (01) ==
LOC: C.ER 11:59
DX: K52.9 Noninfective gastroenteritis and colitis, unspecified (principal)
CPT/HCPCS: 80053; 83690; 85025; 96361; 96374; 99284; J2405; J7030

== ENCOUNTER 2019-01-11 19:29 | Emergency (ER) | payer OTHER ==
[2019-01-11] MEDS ORDERED: Apap-Butalbital-Caffeine 325-50-40mg Tab PO STA (20:46)
[2019-01-11] MEDS ORDERED: Apap-Butalbital-Caffeine 325-50-40mg Tab ONE (20:55)
--- NOTE | 2019-01-11 22:41 | C.PDOC ---
History Of Present Illness 43 year old female presents with right sided headache and nasal congestion for the past 3 days associated with ringing in her right ear. Patient states the pain is now radiating to the right neck. She tried taking tylenol at home with no relief. Patient saw a television picture tube rebuilder today who noticed her blood pressure was elevated and advised her to come to the ER to be evaluated. She denies any headache at this time but reports some blurry vision and reports cough that began today. Denies nausea, vomiting, fever, or weakness. Time Seen by Provider: 01/11/19 19:51 Chief Complaint (Nursing): Headache History Per: Patient History/Exam Limitations: no limitations Onset/Duration Of Symptoms: Days (3) Current Symptoms Are (Timing): Still Present Preceeding Symptoms: None Associated Symptoms: Blurred Vision. denies: Nausea, Vomiting Recent travel outside of the [place]: No Past Medical History Reviewed: Historical Data, Nursing Documentation, Vital Signs Vital Signs: Last Vital Signs Temp 98.7 F 01/11/19 19:44 Pulse 100 H 01/11/19 19:44 Resp 20 01/11/19 19:44 BP 132/85 01/11/19 19:44 Pulse Ox 98 01/11/19 19:44 Primary Care Provider: Non [facility] Provider, Surgical History: Cholecystectomy - [facility] Procedures EXCISION OF DESCENDING COLON, ENDO, DIAGN (10/05/18) Family History: States: Unknown Family Hx - Social History Hx Tobacco Use: No Hx Alcohol Use: No Hx Substance Use: No - Immunization History Hx Tetanus Toxoid Vaccination: No Hx Influenza Vaccination: Yes (08/2018) Hx Pneumococcal Vaccination: No Review Of Systems Constitutional: Negative for: Fever, Chills Eyes: Positive for: Other (Blurry vision) ENT: Positive for: Nose Congestion Respiratory: Positive for: Cough Gastrointestinal: Negative for: Nausea, Vomiting Neurological: Positive for: Headache. Negative for: Weakness, Numbness Physical Exam - Physical Exam Appears: Well, Non-toxic, No Acute Distress Skin: Normal Color, Warm Head: Atraumatic, Normacephalic, Tenderness (Parasinus) Eye(s): bilateral: Normal Inspection, PERRL, EOMI Ear(s): Bilateral: Normal Nose: Other (Enlarged turbinates) Oral Mucosa: Moist Throat: Normal, No Erythema, No Exudate Neck: Normal, Supple Extremity: Normal ROM (x4) Neurological/Psych: Oriented x3, Normal Speech, Normal Motor, Normal Sensation Gait: Steady ED Course And Treatment O2 Sat by Pulse Oximetry: 98 (room air) Pulse Ox Interpretation: Normal - CT Scan/US CT Head Other Rad Studies (CT/US): Read By Radiologist, Radiology Report Reviewed CT/US Interpretation: EXAM: CT Head Without IV contrast. CLINICAL HISTORY: Moderate headache neck pain. TECHNIQUE: Axial computed tomography images of the head/brain without intravenous contrast. COMPARISON: None provided. FINDINGS: BRAIN: No acute intraparenchymal hemorrhage. No mass lesion. No CT evidence for acute territorial infarct. No midline shift or extra-axial co llections. VENTRICLES: No hydrocephalus. ORBITS: The orbits are unremarkable. SINUSES AND MASTOIDS: The paranasal sinuses and mastoid air cells are clear. BONES: No fracture. SOFT TISSUES: Unremarkable. IMPRESSION: No acute intracranial abnormality. Progress Note: CT Head ordered, results were negative. Tylenol administered. Patient is resting comfortably in no acute distress, vitals are stable, will discharge home with Rx and instructions to follow up with PMD. Disposition Counseled Patient/Family Regarding: Diagnosis, Need For Followup, Rx Given - Disposition Disposition: HOME/ ROUTINE Disposition Time: 22:38 Condition: STABLE Additional Instructions: Increase PO fluids Take medications as directed Follow up in clinic for further evaluation Return to ER if symptoms worsen Prescriptions: Acetaminophen/Butalbital/Caf [Fioricet] 1 tab PO TID PRN #20 tab PRN Reason: Headache Cetirizine HCl [Zyrtec] 10 mg PO DAILY #14 capsule Promethazine DM [Phenergan DM Syrup] 5 ml PO QID #120 ml Instructions: Headache, Adult (DC) Forms: [employer] (Lithuanian) Print Language: TAJIK - Clinical Impression Clinical Impression: Headache - 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 - Scribe Statement The provider has reviewed the documentation as recorded by the Scribjefferson Bullock All medical record entries made by the Scribe were at my direction and personally dictated by me. I have reviewed the chart and agree that the record accurately reflects my personal performance of the history, physical exam, medical decision making, and the department course for this patient. I have also personally directed, reviewed, and agree with the discharge instructions and disposition.
[2019-01-11 22:51] VITALS: BP 115/84; PULSE 77; RESP 18; TEMP 98.2
[2019-01-11 23:10] VITALS: O2SAT 98
--- NOTE | 2019-01-12 07:50 | CT ---
Date of service: 01/11/2019 PROCEDURE: CT HEAD WITHOUT CONTRAST. HISTORY: moderate headache, neck pain COMPARISON: None available. TECHNIQUE: Axial computed tomography images were obtained through the head/brain without intravenous contrast. Radiation dose: Total exam DLP = 1117.85 mGy-cm. This CT exam was performed using one or more of the following dose reduction techniques: Automated exposure control, adjustment of the mA and/or kV according to patient size, and/or use of iterative reconstruction technique. FINDINGS: HEMORRHAGE: No intracranial hemorrhage. BRAIN: No mass effect or edema. 5.7 millimeter focal area of low attenuation seen within the right frontal subcortical white matter best demonstrated on series 4, image 28, nonspecific. Correlation with MRI may be helpful if clinically indicated to better evaluate this region. Punctate bilateral basal ganglia calcifications. VENTRICLES: Unremarkable. No hydrocephalus. CALVARIUM: Unremarkable. PARANASAL SINUSES: Unremarkable as visualized. No significant inflammatory changes. MASTOID AIR CELLS: Unremarkable as visualized. No inflammatory changes. OTHER FINDINGS: None. IMPRESSION: 1. No acute intracranial hemorrhage. 2. 5.7 millimeter focal area of low attenuation seen within the right frontal subcortical white matter best demonstrated on series 4, image 28; nonspecific. Correlation with MRI may be helpful if clinically indicated to better evaluate this region. A preliminary report was generated at 10:07 p.m. on 01/11/[address] Jeffrey Harris from [facility]. This case was placed in the PA review folder to coordinate MRI follow-up.
== END 2019-01-11 22:52 | disposition home or self-care (01) ==
LOC: C.ER 19:29
DX: R51 Headache (principal)

== ENCOUNTER 2019-01-21 10:12 | Outpatient (CLI) | payer OTHER | END 2019-01-21 10:13 | disposition home or self-care (01) | LOC: C.MRIC 10:12 | DX: R90.89 Other abnormal findings on diagnostic imaging of central nervous system (principal) ==